=== PATIENT | male | born 1980 | race Caucasian/White ===

== ENCOUNTER 2021-01-29 21:24 | Emergency (ER) | payer MEDICAID ==
[2021-01-29] MEDS ORDERED: Sodium Chloride 0.9% 10 ML Syringe FLUSH PRN (21:27)
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
[2021-01-29] MEDS ORDERED: Diphtheria,Pertussis(Acell),Tetanus Vaccine 0.5 ML Syringe IM ONE (21:38)
[2021-01-29] MEDS ORDERED: Sodium Chloride 0.9% 10 ML Syringe FLUSH ONE (21:43)
[2021-01-29] MEDS ORDERED: Iopamidol 612 MG/ML 100 ML Bottle IV SCH (21:45)
[2021-01-29] MEDS ORDERED: Sodium Chloride 0.9% 80 ML IV SCH (21:45)
[2021-01-29] MEDS ORDERED: Bacitracin Oint 1 GM U/D Packet ONE (22:28)
[2021-01-29] MEDS ORDERED: Bacitracin Oint 1 GM U/D Packet TOP ONE ×2 (22:45→23:00)
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
== END 2021-01-29 23:24 | disposition home or self-care (01) ==
LOC: JP.ED 21:24
DX: S06.9X9A Unspecified intracranial injury with loss of consciousness of unspecified duration, initial encounter (principal); S22.41XA Multiple fractures of ribs, right side, initial encounter for closed fracture; S16.1XXA Strain of muscle, fascia and tendon at neck level, initial encounter; S00.03XA Contusion of scalp, initial encounter; S50.811A Abrasion of right forearm, initial encounter; S40.211A Abrasion of right shoulder, initial encounter; F10.129 Alcohol abuse with intoxication, unspecified; Y90.8 Blood alcohol level of 240 mg/100 ml or more; Z23 Encounter for immunization; V86.99XA Unspecified occupant of other special all-terrain or other off-road motor vehicle injured in nontraffic accident, initial encounter
CPT/HCPCS: 36415; 70450; 71260; 72125; 74177; 80053; 80307; 85025; 85610; 85730; 90471; 90715; 99285; Q9967

== ENCOUNTER 2025-07-01 07:43 | Day surgery (SDC) | payer MEDICAID ==
[2025-07-01] MEDS: Lactated Ringers 1,000 ML IV SCH (08:21)
[2025-07-01] MEDS ORDERED: fentaNYL 100 MCG/2 ML SDV ONE (08:41)
[2025-07-01] MEDS ORDERED: Midazolam 1 MG/ML 2 ML SDV ONE (08:41)
[2025-07-01] MEDS ORDERED: Propofol 200 MG/20 ML SDV ONE (08:41)
== END 2025-07-01 11:00 | disposition home or self-care (01) ==
LOC: JP.SDS 07:43
PROVIDERS: ATTEND Surgery
DX: K20.90 Esophagitis, unspecified without bleeding (principal); Z79.899 Other long term (current) drug therapy
CPT/HCPCS: 00731; 43239; 88305; J2250; J2704; J3010; J7120